=== PATIENT | male | born 1965 | race African-American/Black ===

== ENCOUNTER 2017-04-24 11:16 | Observation (INO) | payer OTHER ==
[~2017-04-24] VITALS: Ht 172.7 cm; Wt 54.8 kg
[~2017-04-24 11:16] MED LIST: CORTIZONE-10 PL57 GM TP; MOTRIN600 MG PO; PEPCID20 MG PO; PREDNISONE20 MG PO
[2017-04-24 12:05] LABS: HEMATOCRIT 42.3 % (38.0-50.0); MCH 30.9 PG (29.0-34.0); MCHC 34.3 G/DL (30.0-36.0); MCV 90.2 FL (86-99); MEAN PLAT.VOLUME 9.2 uM^3 (9.0-12.4); PLATELET COUNT 290 K/uL (156-360); RBC DIS.WIDTH-CV 13.7 % (11.8-14.6); RED BLOOD COUNT 4.69 M/uL (4.00-5.50); WHITE BLOOD COUNT 5.6 K/uL (4.1-10.2)
[2017-04-24 12:14] LABS: CHLORIDE 94 mEq/L (99-109)
[2017-04-24 12:15] LABS: POTASSIUM 4.3 mEq/L (3.7-5.4); SODIUM 134 mEq/L (136-147)
[2017-04-24 12:16] LABS: GLUCOSE 98 mg/dL (70-99)
[2017-04-24 12:18] LABS: ANION GAP 16 MEQ/L (2-14)
[2017-04-24 12:20] LABS: GFR ESTIMATE (CALCULATED) > 59 mL/min/
[2017-04-24 12:21] LABS: UREA NITROGEN (BUN) 10 mg/dL (9-23)
[2017-04-24 12:41] LABS: TROP-I INTERPRETATION NEGATIVE; TROPONIN-I 0.01 ng/mL (0.0-0.30)
[2017-04-24 13:38] LABS: LIPASE 20 U/L (1.0-51.0); SAMPLE HEMOLYSIS CHECK 0; SAMPLE ICTERIC CHECK 0; SAMPLE LIPEMIA CHECK 0; SERUM ETHYL ALCOHOL 182 mg/dL
[2017-04-24 13:50] LABS: AMPHETAMINE NEGATIVE (500 ng/mL); BARBITURATES NEGATIVE (200 ng/mL); BENZODIAZEPINES NEGATIVE (150 ng/mL); COCAINE NEGATIVE (150 ng/mL); INTERNAL CONTROLS VALID? YES; METHADONE NEGATIVE (200 ng/mL); METHAMPHETAMINE NEGATIVE (500 ng/mL); OPIATES (MORPHINE) NEGATIVE (100 ng/mL); OXYCODONE NEGATIVE (100 ng/mL); PHENCYCLIDINE NEGATIVE (25 ng/mL); PROPOXYPHENE NEGATIVE (300 ng/mL); THC CANNABINOIDS NEGATIVE (50 ng/mL); TRICYCLIC ANTIDEPRESSANTS NEGATIVE (300 ng/mL)
[2017-04-24 14:26] LABS: MAGNESIUM 2.1 mg/dl (1.3-2.7)
[2017-04-24 15:04] LABS: TROP-I INTERPRETATION NEGATIVE; TROPONIN-I < 0.01 ng/mL (0.0-0.30)
[2017-04-24] MEDS ORDERED: MIRTAZAPINE15 MG PO (18:29)
[2017-04-24] MEDS ORDERED: DEPAKOTE250 MG PO (18:30)
[2017-04-24 20:37] VITALS: BP 136/77
[2017-04-24 20:48] LABS: HEMATOCRIT 36.5 % (38.0-50.0); MCV 90.8 FL (86-99)
[2017-04-24 21:21] LABS: TROP-I INTERPRETATION NEGATIVE; TROPONIN-I < 0.01 ng/mL (0.0-0.30)
[2017-04-24 23:43] VITALS: BP 128/77
[2017-04-25 03:20] LABS: HEMATOCRIT 36.7 % (38.0-50.0); MCH 31.1 PG (29.0-34.0); MCHC 34.1 G/DL (30.0-36.0); MCV 91.3 FL (86-99); RBC DIS.WIDTH-CV 13.9 % (11.8-14.6); RBC DIS.WIDTH-SD 46.5 % (39-53); RED BLOOD COUNT 4.02 M/uL (4.00-5.50); WHITE BLOOD COUNT 4.5 K/uL (4.1-10.2)
[2017-04-25 03:26] LABS: CHLORIDE 102 mEq/L (99-109); POTASSIUM 4.3 mEq/L (3.7-5.4); SODIUM 136 mEq/L (136-147)
[2017-04-25 03:28] LABS: GLUCOSE 73 mg/dL (70-99)
[2017-04-25 03:29] LABS: ANION GAP 11 MEQ/L (2-14)
[2017-04-25 03:32] LABS: GFR ESTIMATE (CALCULATED) > 59 mL/min/
[2017-04-25 03:33] LABS: UREA NITROGEN (BUN) 10 mg/dL (9-23)
[2017-04-25 03:38] VITALS: BP 137/78
[2017-04-25 03:48] LABS: TROP-I INTERPRETATION NEGATIVE; TROPONIN-I < 0.01 ng/mL (0.0-0.30)
[2017-04-25 04:56] LABS: HEMATOLOGY COMMENT 1 SMEAR COMPATIBLE; MEAN PLAT.VOLUME 9.4 uM^3 (9.0-12.4); PLAT.SUFFICIENCY ADEQUATE; PLATELET COUNT 194 K/uL (156-360)
[2017-04-25 10:13] VITALS: BP 138/69
[2017-04-25 12:34] VITALS: BP 138/81
[2017-04-25 14:06] LABS: HEMATOCRIT 34.6 % (38.0-50.0)
[2017-04-25 17:07] VITALS: BP 124/78
[2017-04-25 19:32] VITALS: BP 150/90
[2017-04-25 23:42] VITALS: BP 139/75
[2017-04-26 04:35] VITALS: BP 141/81
[2017-04-26 07:03] LABS: HEMATOCRIT 35.7 % (38.0-50.0); MCH 32.6 PG (29.0-34.0); MCHC 35.3 G/DL (30.0-36.0); MCV 92.5 FL (86-99); MEAN PLAT.VOLUME 9.8 uM^3 (9.0-12.4); NRBC (%) 0.5 /100 WBC (0-0); PLATELET COUNT 182 K/uL (156-360); RBC DIS.WIDTH-CV 13.9 % (11.8-14.6); RBC DIS.WIDTH-SD 46.6 % (39-53); RED BLOOD COUNT 3.86 M/uL (4.00-5.50); WHITE BLOOD COUNT 3.7 K/uL (4.1-10.2)
[2017-04-26 08:29] VITALS: BP 139/81
[2017-04-26] MEDS ORDERED: PANTOPRAZOLE SO40 MG PO (12:27)
[2017-04-26] MEDS ORDERED: NALTREXONE HCL50 MG PO (12:30)
== END 2017-04-26 13:05 | disposition home or self-care (01) ==
LOC: EME 11:16 → EDOF 18:24 → 5SOUTH 18:24 → ENRESERV 18:26 → 5SOUTH 20:12
PROVIDERS: Hospitalist; Nurse Practitioner Family
DX: K29.20 Alcoholic gastritis without bleeding (principal); K92.0 Hematemesis; F10.20 Alcohol dependence, uncomplicated; F32.9 Major depressive disorder, single episode, unspecified; Z59.0 Homelessness; F17.210 Nicotine dependence, cigarettes, uncomplicated; G89.29 Other chronic pain; M79.601 Pain in right arm; R20.0 Anesthesia of skin; V49.9XXS Car occupant (driver) (passenger) injured in unspecified traffic accident, sequela; Z87.898 Personal history of other specified conditions; R45.851 Suicidal ideations; Z88.0 Allergy status to penicillin
CPT/HCPCS: 71020; 80048; 83690; 83735; 84484; 85014; 85018; 85027; 90839; 93005; 99281; 99285; C9113; G0378; G0480; J2060; J3411; J7030; J7120

== ENCOUNTER 2017-08-18 09:37 | Emergency (ER) | payer OTHER ==
[~2017-08-18] VITALS: Ht 175.3 cm; Wt 61.3 kg
[~2017-08-18 09:37] MED LIST changes: +DEPAKOTE250 MG PO; +MIRTAZAPINE15 MG PO; +NALTREXONE HCL50 MG PO; +PANTOPRAZOLE SO40 MG PO
[2017-08-18 10:14] LABS: BASOPHIL (%) 0.4 % (0-1); EOSINOPHIL (%) 3.1 % (0-5); EOSINOPHIL COUNT 0.2 K/uL (0-0.3); HEMATOCRIT 42.6 % (38.0-50.0); HEMOGLOBIN 14.7 G/DL (12.5-16.6); IMMATURE GRANULOCYTE (%) 0.3 % (0.0-0.7); LYMPHOCYTE (%) 32.4 % (15-42); LYMPHOCYTE COUNT 2.2 K/uL (1.0-2.8); MCH 31.9 PG (29.0-34.0); MCHC 34.5 G/DL (30.0-36.0); MCV 92.4 FL (86-99); MONOCYTE (%) 12.4 % (3-12); MONOCYTE COUNT 0.8 K/uL (0-0.8); NEUTROPHIL (%) 51.4 % (45-76); NEUTROPHIL COUNT 3.4 K/uL (1.8-6.4); PLATELET COUNT 229 K/uL (156-360); RBC DIS.WIDTH-CV 11.7 % (11.8-14.6); RBC DIS.WIDTH-SD 39.5 % (39-53); RED BLOOD COUNT 4.61 M/uL (4.00-5.50); WHITE BLOOD COUNT 6.7 K/uL (4.1-10.2)
[2017-08-18 10:20] LABS: INTER. NORMALIZED RATIO 0.9
[2017-08-18 10:22] LABS: CHLORIDE 105 mEq/L (99-109); POTASSIUM 4.3 mEq/L (3.7-5.4); SODIUM 132 mEq/L (136-147)
[2017-08-18 10:24] LABS: GLUCOSE 88 mg/dL (70-99)
[2017-08-18 10:28] LABS: CREATININE 0.7 mg/dL (0.6-1.3); GFR ESTIMATE (CALCULATED) > 59 mL/min/ (58.99-99999)
[2017-08-18 10:29] LABS: UREA NITROGEN (BUN) 10 mg/dL (9-23)
[2017-08-18 12:50] LABS: APPEARANCE CLEAR ((CLEAR)); BILIRUBIN NEGATIVE; BLOOD NEGATIVE; COLOR YELLOW ((YELLOW)); GLUCOSE (STRIP) NEGATIVE; KETONES NEGATIVE; LEUKOCYTES NEGATIVE; NITRITE NEGATIVE; PROTEIN (STRIP) NEGATIVE; SPECIFIC GRAVITY 1.025 (1.000-1.030); UCUL ADDED? NO; UROBILINOGEN 0.2 MG/DL (0.2-1.0)
[2017-08-18] MEDS ORDERED: PERCOCET 5/31 TABLET PO (13:03)
[2017-08-18 13:37] VITALS: BP 149/78
== END 2017-08-18 13:37 | disposition home or self-care (01) ==
LOC: EME 09:37
PROVIDERS: Physician Assistant
DX: S30.1XXA Contusion of abdominal wall, initial encounter (principal); S00.11XA Contusion of right eyelid and periocular area, initial encounter; W10.9XXA Fall (on) (from) unspecified stairs and steps, initial encounter; R10.32 Left lower quadrant pain; M54.9 Dorsalgia, unspecified; F41.9 Anxiety disorder, unspecified; F32.9 Major depressive disorder, single episode, unspecified; Z88.0 Allergy status to penicillin; F17.200 Nicotine dependence, unspecified, uncomplicated
CPT/HCPCS: 72129; 72132; 74177; 80048; 81003; 85025; 85610; J2270; J2405; J7040

== ENCOUNTER 2017-08-26 13:13 | Emergency (ER) | payer OTHER ==
[~2017-08-26] VITALS: Ht 175.3 cm; Wt 63.3 kg
[~2017-08-26 13:13] MED LIST changes: +PERCOCET 5/31 TABLET PO
[2017-08-26 14:27] LABS: HEMATOCRIT 36.7 % (38.0-50.0); HEMOGLOBIN 12.5 G/DL (12.5-16.6); MCH 31.8 PG (29.0-34.0); MCHC 34.1 G/DL (30.0-36.0); MCV 93.4 FL (86-99); PLATELET COUNT 292 K/uL (156-360); RBC DIS.WIDTH-CV 11.7 % (11.8-14.6); RBC DIS.WIDTH-SD 40.6 % (39-53); RED BLOOD COUNT 3.93 M/uL (4.00-5.50); WHITE BLOOD COUNT 6.3 K/uL (4.1-10.2)
[2017-08-26 14:34] LABS: CHLORIDE 102 mEq/L (99-109); POTASSIUM 4.1 mEq/L (3.7-5.4); SODIUM 137 mEq/L (136-147)
[2017-08-26 14:36] LABS: GLUCOSE 85 mg/dL (70-99)
[2017-08-26 14:40] LABS: GFR ESTIMATE (CALCULATED) > 59 mL/min/ (58.99-99999)
[2017-08-26 14:41] LABS: UREA NITROGEN (BUN) 13 mg/dL (9-23)
[2017-08-26 14:48] LABS: APPEARANCE CLEAR ((CLEAR)); COLOR STRAW ((YELLOW)); GLUCOSE (STRIP) NEGATIVE; KETONES SMALL; LEUKOCYTES NEGATIVE; NITRITE NEGATIVE; PROTEIN (STRIP) NEGATIVE; UROBILINOGEN 0.2 MG/DL (0.2-1.0)
[2017-08-26 14:49] LABS: BILIRUBIN NEGATIVE; BLOOD NEGATIVE; UCUL ADDED? NO
[2017-08-26 14:52] LABS: AMPHETAMINE NEGATIVE (500 ng/mL); BARBITURATES NEGATIVE (200 ng/mL); BENZODIAZEPINES NEGATIVE (150 ng/mL); BUPRENORPHINE NEGATIVE (10 ng/mL); COCAINE NEGATIVE (150 ng/mL); METHADONE NEGATIVE (200 ng/mL); METHAMPHETAMINE NEGATIVE (500 ng/mL); OPIATES (MORPHINE) NEGATIVE (100 ng/mL); OXYCODONE NEGATIVE (100 ng/mL); PHENCYCLIDINE NEGATIVE (25 ng/mL); PROPOXYPHENE NEGATIVE (300 ng/mL); THC CANNABINOIDS PRESUMPTIVE POSITIVE (50 ng/mL); TRICYCLIC ANTIDEPRESSANTS NEGATIVE (300 ng/mL)
[2017-08-26] MEDS ORDERED: PERCOCET 5/31 TABLET PO (17:44)
[2017-08-26 18:01] VITALS: BP 164/75
== END 2017-08-26 18:03 | disposition home or self-care (01) ==
LOC: EME 13:13
PROVIDERS: Nurse Practitioner Family
DX: S30.1XXA Contusion of abdominal wall, initial encounter (principal); M54.5 Low back pain; W10.9XXA Fall (on) (from) unspecified stairs and steps, initial encounter; Z88.0 Allergy status to penicillin
CPT/HCPCS: 72100; 74177; 80048; 81003; 84999; 85027; 99281; 99284; J1885; J7512